=== PATIENT | female | born 1970 | race Hispanic/Latino ===

== ENCOUNTER 2018-10-12 17:18 | Emergency (ER) | payer BC ==
[2018-10-12 18:25] VITALS: BMI 34.7
[2018-10-12 18:36] VITALS: RESP 18; TEMP 98.6
--- NOTE | 2018-10-12 18:37 | ED PDOC ---
Arrival/HPI - General Time Seen by Provider: 10/12/18 18:32 Historian: Patient - History of Present Illness Narrative History of Present Illness (Text): 10/12/18 18:32 47 y/o female, no significant pmh, nkda, c/o rt. shoulder pain s/p fall about 11 hours ago. Pt. tripped over her pet at home this morning, landed on the rt. shoulder and now has pain to the rt. shoulder/proximal humerus, painful to move the rt. shoulder, no numbness or tingling, no hea d/neck/chest/abdomen/pelvis/other extremities injury or pain, no LOC, able to recall the whole event, no headache or night sweat, no rash, no palpitation, no dizziness, no other medical or psychological complaints. Past Medical History - Provider Review Nursing Documentation Reviewed: Yes - Psychiatric Hx Substance Use: No - Surgical History Hx Section: Yes (2011) Hx Dilation and Curettage: Yes (1989 and 2011) Other/Comment: Rt wrist sx 10 years ago - Anesthesia Hx Anesthesia: Yes Family/Social History - Physician Review Nursing Documentation Reviewed: Yes Family/Social History: Unknown Family HX Smoking Status: Heavy Smoker > 10 Cigarettes Daily Hx Alcohol Use: No Hx Substance Use: No Allergies/Home Meds Allergies/Adverse Reactions: Allergies No Known Allergies Allergy (Verified 10/12/18 18:25) Review of Systems - Review of Systems Constitutional: absent: Fatigue, Fevers Eyes: absent: Vision Changes ENT: absent: Hearing Changes Respiratory: absent: SOB, Cough Cardiovascular: absent: Chest Pain Gastrointestinal: absent: Abdominal Pain, Diarrhea, Nausea, Vomiting Genitourinary Female: absent: Dysuria Musculoskeletal: Arthralgias. absent: Back Pain, Neck Pain, Joint Swelling, Myalgias Skin: absent: Rash, Pruritis Neurological: absent: Headache, Dizziness Psychiatric: absent: Anxiety, Depression, Suicidal Ideation Physical Exam Vital Signs Reviewed: Yes Temperature: Afebrile Blood Pressure: Normal Pulse: Tachycardic Respiratory Rate: Normal Appearance: Positive for: Well-Appearing, Non-Toxic Pain Distress: Moderate Mental Status: Positive for: Alert and Oriented X 3 - Systems Exam Head: Present: Atraumatic, Normocephalic Pupils: Present: PERRL Extroacular Muscles: Present: EOMI Conjunctiva: Present: Normal Mouth: Present: Moist Mucous Membranes Nose (External): Present: Atraumatic. No: Abrasion, Contusion, Laceration, Lesions, Other Nose (Internal): Present: Normal Inspection, No Active Bleeding. No: Rhinorrhea, Septal Deviation, Septal Hematoma, Epistaxis Neck: Present: Normal Range of Motion Respiratory/Chest: Present: Clear to Auscultation, Good Air Exchange. No: Respiratory Distress, Accessory Muscle Use Cardiovascular: Present: Regular Rate and Rhythm, Normal S1, S2. No: Murmurs Abdomen: Present: Normal Bowel Sounds. No: Tenderness, Distention, Peritoneal Signs, Rebound, Guarding, Rovsing's Sign Present Back: Present: Normal Inspection Upper Extremity: Present: Normal Inspection, NORMAL PULSES, Neurovascularly Intact, Capillary Refill < 2s, Other (Rt. Upper extremity: +ttp on the rt. lateral shoulder and proximal humerus region with no ecchymosis or skin discoloration, FROM without limitation except painful rt. shoulder movement, senstion intact, motor 5/5, normal 2pts. finger discrimination, +radial pulse, capillary refill< 2 seconds, neurovascular intact. ). No: Cyanosis, Edema, Swelling, Erythema, Deformity Lower Extremity: Present: Normal Inspection. No: Edema Neurological: Present: GCS=15, CN II-XII Intact, Speech Normal Skin: Present: Warm, Dry, Normal Color. No: Rashes Psychiatric: Present: Alert, Oriented x 3, Normal Insight, Normal Concentration Medical Decision Making ED Course and Treatment: 10/12/18 18:43 -Percocet -rt. shoulder xray -rt. humerus xray -Observe and reassess 10/12/18 19:42 -rt. shoulder xray: Er wet read: +proximal humeral head fracture, no shoulder joint dislocation -rt. humerus xray: ER wet read, no fracture or dislocation of the shaft of the humerus. -Sling applied with neurovascular intact, discussed result with the patient, advised outpatient orthopedic follow up in 2 days, she has no focal neurological deficits and with neurovascular intact on the rt. upper extremity. -Discharge home with sling, percocet, copy of the xray, ice pack, follow up with your own pmd and orthopedic within 2 days, return to the ER for any new or worsening signs or symptoms. - RAD Interpretation Radiology Orders: -rt. shoulder xray -rt. humerus xray Facility Maintenance Supervisor: Radiologist - PA / [employer] / Resident Statement / has reviewed & agrees with the documentation as recorded. Disposition/Present on Arrival - Present on Arrival Any Indicators Present on Arrival: No History of DVT/PE: No History of Uncontrolled Diabetes: No Urinary Catheter: No History of Decub. Ulcer: No History Surgical Site Infection Following: None - Disposition Have Diagnosis and Disposition been Completed?: Yes Diagnosis: Fall, Fracture of humeral head, closed Disposition: HOME/ ROUTINE Disposition Time: 18:43 Patient Plan: Discharge Condition: GOOD Additional Instructions: -Discharge home with sling, motrin for mild to moderat pain, severe pain take percocet, copy of the xray, ice pack, follow up with your own pmd and orthopedic within 2 days, return to the ER for any new or worsening signs or symptoms. Prescriptions: Ibuprofen [Motrin] 600 mg PO QID PRN #28 tab PRN Reason: other oxyCODONE/Acetaminophen [Percocet 5/325 mg Tab] 1 tab PO TID PRN #12 tab PRN Reason: other Referrals: PCP,NO [Primary Care Provider] - Follow up with primary Vanda Porras MD [Staff Provider] - [place] up with primary [facility] [place] [facility] [place] - Follow up with primary Forms: WORK NOTE
[2018-10-12] MEDS ORDERED: Oxycodone/Acetaminophen 5/325 mg Tab PO STA (18:38)
[2018-10-12 20:12] VITALS: BP 125/82; PULSE 90; O2SAT 96
--- NOTE | 2018-10-13 11:11 | RAD ---
Date of service: 10/12/2018 PROCEDURE: Radiographs of the Right Shoulder HISTORY: rt. shoulder pain s/p fall COMPARISON: No prior. TECHNIQUE: 3 views obtained. FINDINGS: BONES: There is a comminuted minimally displaced fracture of the humeral head involving the greater tuberosity. The articular surface is intact JOINTS: Normal. Glenohumeral and acromioclavicular joints preserved. No osteoarthritis. SOFT TISSUES: Normal. OTHER FINDINGS: None. IMPRESSION: There is a comminuted minimally displaced fracture of the humeral head involving the greater tuberosity. The articular surface is intact
--- NOTE | 2018-10-13 11:12 | RAD ---
PROCEDURE: Radiographs of the right humerus. HISTORY: rt. shoulder pain s/p fall COMPARISON: None. TECHNIQUE: 2 views obtained. FINDINGS: BONES: Normal. No fracture or focal lesion. There is a comminuted minimally displaced fracture of the humeral head involving the greater tuberosity. The articular surface is intact SOFT TISSUES: Normal. OTHER FINDINGS: None. IMPRESSION: Humeral head fracture. The remainder of the humerus is unremarkable
== END 2018-10-12 20:31 | disposition home or self-care (01) ==
LOC: MERGE 17:18 → ED 17:18
DX: S42.251A Displaced fracture of greater tuberosity of right humerus, initial encounter for closed fracture (principal); W01.0XXA Fall on same level from slipping, tripping and stumbling without subsequent striking against object, initial encounter; Y92.009 Unspecified place in unspecified non-institutional (private) residence as the place of occurrence of the external cause